=== PATIENT | female | born 1945 | race Caucasian/White ===

== ENCOUNTER 2021-10-29 14:53 | Emergency (ER) | payer BC, OTHER ==
[2021-10-29] MEDS: traMADol 50 MG Tab PO ONE (15:38)
[2021-10-29] MEDS: Diphtheria,Pertussis(Acell),Tetanus Vaccine 0.5 ML SDV IM ONE (15:40)
[2021-10-29] MEDS ORDERED: Cephalexin 500 MG Cap ONE (16:30)
== END 2021-10-29 16:40 | disposition home or self-care (01) ==
LOC: LB.ED 14:53
DX: S61.412A Laceration without foreign body of left hand, initial encounter (principal); S81.811A Laceration without foreign body, right lower leg, initial encounter; Z23 Encounter for immunization; W18.30XA Fall on same level, unspecified, initial encounter
CPT/HCPCS: 90471; 90715; 99281; 99282-25; A9270-GY